=== PATIENT | male | born 1980 | race Caucasian/White ===

== ENCOUNTER 2021-01-19 21:51 | Emergency (ER) | payer MEDICAID ==
[~2021-01-19] VITALS: Ht 185.4 cm; Wt 159.1 kg
[2021-01-19 22:31] VITALS: BP 118/80
[2021-01-19 22:48] LABS: BASOPHILS % (AUTO) 0.4 % (0-1); EOSINOPHILS % (AUTO) 0 % (0-6); HEMATOCRIT 47.6 % (42.0-52.0); HEMOGLOBIN 16.4 g/dl (14.0-17.9); LYMPHOCYTES # (AUTO) 0.9 X10'3 (1.1-4.8); LYMPHOCYTES % (AUTO) 33.2 % (21-51); MEAN CORPUSCULAR HEMOGLOBIN 29.9 PG (27.0-31.0); MEAN CORPUSCULAR HGB CONC 34.5 g/dL (33.0-36.5); MEAN CORPUSCULAR VOLUME 86.8 FL (78-98); MEAN PLATELET VOLUME 9.1 FL (7.4-10.4); MONOCYTES # (AUTO) 0.4 X10'3 (0-0.9); MONOCYTES % (AUTO) 15.9 % (2-12); NEUTROPHILS # (AUTO) 1.4 X10'3 (1.8-7.7); NEUTROPHILS % (AUTO) 50.5 % (42-75); PLATELET COUNT 114 X10'3 (140-440); RED BLOOD COUNT 5.48 X10'6 (4.70-6.10); RED CELL DISTRIBUTION WIDTH 12.9 % (11.5-14.5); WHITE BLOOD COUNT 2.7 X10'3 (4.5-11.0)
[2021-01-19 22:58] LABS: ALANINE AMINOTRANSFERASE 77 U/L (12-78); ALBUMIN 3.4 G/DL (3.4-5.0); ALKALINE PHOSPHATASE 90 IU/L (46-116); ANION GAP 13 (8-16); ASPARTATE AMINO TRANSFERASE 46 U/L (10-37); BILIRUBIN,TOTAL 0.6 MG/DL (0.1-1.0); BLOOD UREA NITROGEN 13 MG/DL (7-18); BUN/CREATININE RATIO 14.4 (5.4-32.0); CALCIUM 8.1 MG/DL (8.5-10.1); CHLORIDE 105 MMOL/L (99-107); GLUCOSE 99 MG/DL (70-104); POTASSIUM 3.4 MMOL/L (3.5-5.1); SODIUM 140 MMOL/L (135-145); TOTAL CARBON DIOXIDE 22.2 MMOL/L (24-32); TOTAL PROTEIN 6.9 G/DL (6.4-8.2); eGFR > 90 ML/MIN
[2021-01-19] MEDS ORDERED: iohexol 350MG/ML 100ml bottle IV ONE (23:49)
[2021-01-20 00:06] LABS: TOTAL CELLS COUNTED 100
[2021-01-20 00:07] LABS: PLATELET ESTIMATE DECREASED
[2021-01-20] MEDS ORDERED: dexamethasone sod phosphate 10mg/ml inj IV STA (00:48)
[2021-01-20] MEDS ORDERED: ALBU8HFA PO (01:07)
== END 2021-01-20 01:47 | disposition home or self-care (01) ==
LOC: ER 21:52
DX: U07.1 COVID-19 (principal); R06.02 Shortness of breath; R51.9 Headache, unspecified; R42 Dizziness and giddiness; F31.9 Bipolar disorder, unspecified; Z72.89 Other problems related to lifestyle; Z88.8 Allergy status to other drugs, medicaments and biological substances; Z91.018 Allergy to other foods; Z79.899 Other long term (current) drug therapy
CPT/HCPCS: 36415; 71045; 71275; 80053; 83880; 84484; 85007; 85025; 93005; 96374; 99285; J1100; Q9967

== ENCOUNTER 2021-03-30 23:06 | Emergency (ER) | payer MEDICAID ==
[~2021-03-30] VITALS: Ht 185.4 cm; Wt 159.1 kg
[2021-03-30 23:56] LABS: BASOPHILS # (AUTO) 0.1 X10'3 (0-0.2); BASOPHILS % (AUTO) 0.6 % (0-1); EOSINOPHILS # (AUTO) 0.4 X10'3 (0-0.9); EOSINOPHILS % (AUTO) 5.5 % (0-6); HEMATOCRIT 45.8 % (42.0-52.0); HEMOGLOBIN 15.8 g/dl (14.0-17.9); LYMPHOCYTES # (AUTO) 2.6 X10'3 (1.1-4.8); LYMPHOCYTES % (AUTO) 33.2 % (21-51); MEAN CORPUSCULAR HEMOGLOBIN 31.2 PG (27.0-31.0); MEAN CORPUSCULAR HGB CONC 34.5 g/dL (33.0-36.5); MEAN CORPUSCULAR VOLUME 90.4 FL (78-98); MEAN PLATELET VOLUME 8.4 FL (7.4-10.4); MONOCYTES # (AUTO) 1.1 X10'3 (0-0.9); MONOCYTES % (AUTO) 13.9 % (2-12); NEUTROPHILS # (AUTO) 3.7 X10'3 (1.8-7.7); NEUTROPHILS % (AUTO) 46.8 % (42-75); PLATELET COUNT 309 X10'3 (140-440); RED BLOOD COUNT 5.06 X10'6 (4.70-6.10); RED CELL DISTRIBUTION WIDTH 13.4 % (11.5-14.5); WHITE BLOOD COUNT 7.9 X10'3 (4.5-11.0)
[2021-03-31 00:15] LABS: ANION GAP 6 (8-16); BLOOD UREA NITROGEN 22 MG/DL (7-18); CHLORIDE 107 MMOL/L (99-107); GLUCOSE 82 MG/DL (70-104); POTASSIUM 4.5 MMOL/L (3.5-5.1); SODIUM 142 MMOL/L (135-145); TOTAL CARBON DIOXIDE 28.8 MMOL/L (24-32)
[2021-03-31 00:16] LABS: ALANINE AMINOTRANSFERASE 58 U/L (12-78); ALBUMIN 3.9 G/DL (3.4-5.0); ALBUMIN/GLOBULIN RATIO 1.2 (1.1-1.5); ALKALINE PHOSPHATASE 95 IU/L (46-116); ASPARTATE AMINO TRANSFERASE 30 U/L (10-37); BILIRUBIN,TOTAL 0.4 MG/DL (0.1-1.0); BUN/CREATININE RATIO 15.1 (5.4-32.0); CALCIUM 9.1 MG/DL (8.5-10.1); CREATININE 1.46 MG/DL (0.60-1.10); TOTAL PROTEIN 7.2 G/DL (6.4-8.2); eGFR 53 ML/MIN
[2021-03-31] MEDS ORDERED: aspirin 81mg tab.chew PO ONE (02:40)
[2021-03-31 02:57] LABS: APTT 32 SECONDS (22-32)
[2021-03-31 02:59] VITALS: BP 142/93
[2021-03-31 03:01] LABS: D-DIMER < 0.19 MG/L FEU (0-0.50)
[2021-03-31 03:24] LABS: C-REACTIVE PROTEIN 0.08 MG/DL (0.0-0.5); MAGNESIUM 2.2 MG/DL (1.5-2.4)
== END 2021-03-31 04:04 | disposition home or self-care (01) ==
LOC: ER 23:07
DX: R07.89 Other chest pain (principal); M54.2 Cervicalgia; R42 Dizziness and giddiness; M54.9 Dorsalgia, unspecified; Z20.822 Contact with and (suspected) exposure to COVID-19; Z91.018 Allergy to other foods
CPT/HCPCS: 36415; 71045; 80053; 83735; 83880; 84145; 84484; 85025; 85379; 85610; 85730; 86140; 87635; 93005; 99285; C9803

== ENCOUNTER 2021-12-02 18:32 | Emergency (ER) | payer MEDICAID ==
[~2021-12-02] VITALS: Ht 185.4 cm; Wt 159.0 kg
[2021-12-02 19:06] VITALS: BP 138/93
[2021-12-02] MEDS ORDERED: PENI500T2 PO (21:54)
== END 2021-12-02 22:07 | disposition home or self-care (01) ==
LOC: ER 18:34
DX: K08.89 Other specified disorders of teeth and supporting structures (principal); F31.9 Bipolar disorder, unspecified; Z88.8 Allergy status to other drugs, medicaments and biological substances; Z79.899 Other long term (current) drug therapy
CPT/HCPCS: 99283

== ENCOUNTER 2022-02-01 16:01 | Emergency (ER) | payer MEDICAID ==
[~2022-02-01] VITALS: Ht 185.4 cm; Wt 161.4 kg
[2022-02-01 16:41] VITALS: BP 134/91
[2022-02-01] MEDS ORDERED: GUAI400T92 PO (17:22)
[2022-02-01] MEDS ORDERED: AZIT-31 PO (17:22)
[2022-02-01] MEDS ORDERED: CIPR2.5D21 RIGHTEYE ×2 (17:24)
== END 2022-02-01 17:46 | disposition home or self-care (01) ==
LOC: ER 16:01
DX: J20.9 Acute bronchitis, unspecified (principal); R09.89 Other specified symptoms and signs involving the circulatory and respiratory systems; H10.31 Unspecified acute conjunctivitis, right eye; F31.9 Bipolar disorder, unspecified; Z91.018 Allergy to other foods
CPT/HCPCS: 99283

== ENCOUNTER 2022-10-20 19:26 | Emergency (ER) | payer MEDICAID ==
[~2022-10-20] VITALS: Ht 182.9 cm; Wt 177.6 kg
[~2022-10-20 19:26] MED LIST: CIPR2.5D21 RIGHTEYE; GUAI400T92 PO
[2022-10-20 19:40] VITALS: BP 131/91; PULSE 80; RESP 16; TEMP 98.7; O2SAT 95
[2022-10-21] MEDS ORDERED: CEPH-585 PO (01:04)
== END 2022-10-21 01:16 | disposition home or self-care (01) ==
LOC: ER 19:29
DX: L02.31 Cutaneous abscess of buttock (principal); F31.9 Bipolar disorder, unspecified
CPT/HCPCS: 99283

== ENCOUNTER 2022-11-14 12:52 | Emergency (ER) | payer MEDICAID ==
[~2022-11-14] VITALS: Ht 185.4 cm; Wt 156.8 kg
[~2022-11-14 12:52] MED LIST changes: +CEPH-585 PO
[2022-11-14 12:57] VITALS: BP 160/105; PULSE 76; RESP 16; TEMP 98.3; O2SAT 99
== END 2022-11-14 17:59 | disposition left against medical advice (07) ==
LOC: ER 12:52
DX: L02.212 Cutaneous abscess of back [any part, except buttock and flank] (principal); Z53.21 Procedure and treatment not carried out due to patient leaving prior to being seen by health care provider
CPT/HCPCS: 99281

== ENCOUNTER 2022-11-18 08:47 | Emergency (ER) | payer MEDICAID ==
[~2022-11-18] VITALS: Ht 185.4 cm; Wt 177.7 kg
[2022-11-18 08:59] VITALS: BP 145/94; PULSE 77; RESP 18; TEMP 97.6; O2SAT 98
[2022-11-18] MEDS ORDERED: TRAM50TA2 PO (10:21)
== END 2022-11-18 10:37 | disposition home or self-care (01) ==
LOC: ER 08:47
DX: M54.50 Low back pain, unspecified (principal); Z72.89 Other problems related to lifestyle; Z91.018 Allergy to other foods; Z79.2 Long term (current) use of antibiotics; Z79.899 Other long term (current) drug therapy
CPT/HCPCS: 99283

== ENCOUNTER 2023-01-28 13:35 | Emergency (ER) | payer MEDICAID ==
[~2023-01-28] VITALS: Ht 185.4 cm; Wt 176.8 kg
[2023-01-28] MEDS ORDERED: magnesium 2GM in 50ml NS 50 ML IV ONE (15:05)
[2023-01-28 15:42] LABS: BASOPHILS % (AUTO) 0.4 % (0-1); EOSINOPHILS # (AUTO) 0.3 X10'3 (0-0.9); EOSINOPHILS % (AUTO) 3.6 % (0-6); HEMATOCRIT 44.3 % (42.0-52.0); HEMOGLOBIN 14.9 g/dl (14.0-17.9); LYMPHOCYTES # (AUTO) 1.9 X10'3 (1.1-4.8); LYMPHOCYTES % (AUTO) 26.5 % (21-51); MEAN CORPUSCULAR HGB CONC 33.7 g/dL (33.0-36.5); MEAN CORPUSCULAR VOLUME 89.1 FL (78-98); MEAN PLATELET VOLUME 7.9 FL (7.4-10.4); MONOCYTES # (AUTO) 0.8 X10'3 (0-0.9); MONOCYTES % (AUTO) 11.4 % (2-12); NEUTROPHILS # (AUTO) 4.1 X10'3 (1.8-7.7); NEUTROPHILS % (AUTO) 58.1 % (42-75); PLATELET COUNT 273 X10'3 (140-440); RED BLOOD COUNT 4.98 X10'6 (4.70-6.10); RED CELL DISTRIBUTION WIDTH 13.3 % (11.5-14.5); WHITE BLOOD COUNT 7.1 X10'3 (4.5-11.0)
[2023-01-28 15:48] LABS: ALANINE AMINOTRANSFERASE 40 U/L (12-78); ALBUMIN 3.6 G/DL (3.4-5.0); ALBUMIN/GLOBULIN RATIO 1.2 (1.1-1.5); ALKALINE PHOSPHATASE 83 IU/L (46-116); ANION GAP 6 (8-16); ASPARTATE AMINO TRANSFERASE 26 U/L (10-37); BILIRUBIN,TOTAL 0.5 MG/DL (0.1-1.0); BLOOD UREA NITROGEN 16 MG/DL (7-18); BUN/CREATININE RATIO 20.8 (10.0-20.0); CALCIUM 8.8 MG/DL (8.5-10.1); CHLORIDE 107 MMOL/L (99-107); CREATININE 0.77 MG/DL (0.60-1.10); GLUCOSE 108 MG/DL (70-104); POTASSIUM 3.7 MMOL/L (3.5-5.1); SODIUM 140 MMOL/L (135-145); TOTAL CARBON DIOXIDE 26.8 MMOL/L (24-32); TOTAL PROTEIN 6.5 G/DL (6.4-8.2); eCRCL 141 ML/MIN; eGFR > 90 ML/MIN
[2023-01-28] MEDS ORDERED: LORazepam 2 mg/ml vial IV ONE (15:55)
[2023-01-28 16:32] LABS: BILIRUBIN,URINE NEGATIVE (Neg); CLARITY,URINE CLEAR (Clear); COLOR,URINE YELLOW (Yellow); GLUCOSE, URINE NEGATIVE (Neg); KETONES,URINE NEGATIVE (Neg); LEUKOCYTE ESTERASE ,URINE NEGATIVE (Neg); NITRITES, URINE NEGATIVE (Neg); OCCULT BLOOD,URINE NEGATIVE (Neg); PH,URINE 8.5 (4.8-8.0); PROTEIN,URINE NEGATIVE (Neg); UROBILINOGEN,URINE 0.2 E.U/dL (0.2-1.0)
[2023-01-28 16:38] LABS: UA COLLECTION TYPE CLN CATCH MIDSTREAM
[2023-01-28 16:49] LABS: URINE AMPHETAMINE SCREEN NEGATIVE (Neg); URINE BARBITUATE SCREEN NEGATIVE (Neg); URINE BENZODIAZEPINES SCREEN NEGATIVE (Neg); URINE CANNABINOID SCREEN NEGATIVE (Neg); URINE COCAINE SCREEN NEGATIVE (Neg); URINE METHADONE SCREEN NEGATIVE (Neg); URINE OPIATE SCREEN NEGATIVE (Neg); URINE PHENCYCLIDINE SCREEN NEGATIVE (Neg)
[2023-01-28 19:44] VITALS: BP 144/96; PULSE 82; RESP 16; TEMP 97.8; O2SAT 99
== END 2023-01-28 19:50 | disposition home or self-care (01) ==
LOC: ER 13:35
DX: R51.9 Headache, unspecified (principal); M54.2 Cervicalgia; R42 Dizziness and giddiness; F41.0 Panic disorder [episodic paroxysmal anxiety]
CPT/HCPCS: 36415; 70450; 80053; 80305; 81003; 85025; 96374; 96375; 99285; J2060; J3475

== ENCOUNTER 2024-07-10 08:00 | Outpatient (CLI) | payer MEDICAID ==
[~2024-07-10 08:00] MED LIST changes: -CEPH-585 PO
--- NOTE | 2024-07-10 12:25 | PROCEDURE NOTE ---
Procedure Note Providers to CC ~ Interpretation: [place] EEG Note # Demographics Type of EEG Read: - Routine EEG - video Patient Location: Outpatient First Name: Al dale" Last Name: Shonda Date of : 1980 Age: 43 Gender: Male Facility: [facility] Time of Initial Page (): 07/10/2024 10:22 Time of Return Call ([place] Time): 07/10/2024 11:06 # EEG Interpretation Start Time of EEG Read (): 07/10/2024 08:29 Stop Time of EEG Read ([place] ): 07/10/2024 08:50 Duration: 0h 21m Technical Details: - The EEG electrodes were placed using the standard International 10-20 system of electrode placement. Video and an accessory EKG lead were used during the course of this study. - This study was recorded using the GIVTED EEG software Indication: - seizure - altered mental status # Description Photic Stimulation: Performed Hyperventilation: NOT performed Phases Captured: - awake - drowsy Symmetry: symmetric Posterior Dominant Rhythm: - present, attenuates on eye opening 10Hz Predominant Frequencies: - posterior dominant alpha (8-12 Hz) - abundant (50-89%) Superimposed Frequencies: - theta (4-7 Hz) - rare (<1%) Amplitude: normal Reactivity: yes Variability: yes Continuity: continuous EKG: NSR # Abnormalities Stimulation: - photic stimulation does NOT cause abnormalities Epileptiform Abnormalities: - NOT present Focal Slowing: no Seizure: - NOT present # Impression Impression: normal # Clinical Correlation Clinical Correlation: This is a normal EEG in the awake and drowsy state. A normal EEG does not exclude nor support the diagnosis of epilepsy. # Demographics First Name: Al dale" Last Name: Shonda Facility: [facility] MANISH BACH MD Jul 10, 2024 12:24
== END 2024-07-10 23:59 | disposition home or self-care (01) ==
LOC: MERGE 08:00 → RAD 08:00
PROVIDERS: ATTEND Physician Assistant
DX: R56.9 Unspecified convulsions (principal)
CPT/HCPCS: 95816